=== PATIENT | male | born 1960 | race Caucasian/White ===

== ENCOUNTER 2021-08-24 15:27 | Outpatient (CLI) | payer OTHER, MEDICAID, MEDICARE, SELFPAY ==
--- NOTE | 2021-08-24 15:45 | USCV_ITS ---
Eamon Harvey Age: 61 Gender: M : 1960 Exam Date: 08/24/2021 15:46 Ordering Phys: Lilian Levi MD ([email or web address]) Technologist: CHARLES Exam Location: [facility] [place] Indication: H/O PFO DONE W/BUBBLES BP: / HR: 68 Rhythm: Sinus Technical Quality: Adequate MEASUREMENTS (Male / Female) Normal Values 2D ECHO LV Diastolic Diameter PLAX 4.0 cm 4.2 - 5.9 / 3.9 - 5.3 cm LV Systolic Diameter PLAX 2.5 cm IVS Diastolic Thickness 1.4 cm 0.6 - 1.0 / 0.6 - 0.9 cm IVS Systolic Thickness 1.7 cm LVPW Diastolic Thickness 1.0 cm 0.6 - 1.0 / 0.6 - 0.9 cm LVPW Systolic Thickness 1.3 cm LVOT Diameter 2.2 cm LV Ejection Fraction 2D Teich 68.9 % LV Ejection Fraction MOD 2C 72.7 % LV Ejection Fraction 2C AL 74.0 % LA Diameter 3.8 cm LA Width 3.4 cm LA Height 5.1 cm RA Width 3.1 cm RA Height 4.6 cm Aorta at Sinotubular Diameter 3.5 cm M-MODE Aortic Annulus Diameter 3.7 cm LA Ao Ratio MM 1.0 MV E Point Septal Separation 0.3 cm DOPPLER AV Peak Velocity 139.0 cm/s LVOT Peak Velocity 93.0 cm/s AV Area Cont Eq vti 3.0 cm squared AV Area Cont Eq pk 2.5 cm squared MV Area PHT 3.2 cm squared Mitral E to A Ratio 0.9 MV E' Velocity 43.0 cm/s Mitral E to MV E' Ratio 9.4 Mitral E to LV E' Lateral Ratio 7.3 Mitral E to LV E' Septal Ratio 13.6 TR Peak Velocity 199.0 cm/s TR Peak Gradient 15.8 mmHg TV Peak E Velocity 44.0 cm/s Right Atrial Pressure 5.0 mmHg Pulmonary Artery Systolic Pressu 20.8 mmHg PV Peak Velocity 110.0 cm/s RV Acceleration Time 0.1 s RV Ejection Time 0.4 s RV AcT/ET 0.1 FINDINGS Left Ventricle Normal left ventricular size, systolic function and wall thickness, with no regional wall motion abnormalities. Left ventricular ejection fraction is estimated at 65 %. Normal diastolic function. Right Ventricle Normal right ventricular size and systolic function. Right ventricular systolic pressure 19 mmHg. Right Atrium Normal right atrial size. No evidence of ASD or PFO by color Doppler. There is possible tiny PFO (few bubbles may have crossed over from right to left atrium) by agitated saline study. Left Atrium Normal left atrial size. Mitral Valve Structurally normal mitral valve. No mitral valve stenosis. No mitral valve regurgitation. Aortic Valve Structurally normal trileaflet aortic valve. No aortic valve stenosis. No aortic valve regurgitation. Tricuspid Valve Structurally normal tricuspid valve. No tricuspid valve stenosis. Trace to mild tricuspid valve regurgitation. Pulmonic Valve Pulmonic valve not well visualized. Trace pulmonary valve regurgitation. Pericardium No pericardial effusion. Aorta Normal size aortic root and proximal ascending aorta. CONCLUSIONS 1. Normal left ventricular size, systolic function and wall thickness, with no regional wall motion abnormalities. Left ventricular ejection fraction is estimated at 65 %. Normal diastolic function. 2. Normal right ventricular size and systolic function. 3. Normal pulmonary artery pressure. 4. There is possible tiny PFO (few bubbles may have crossed over from right to left atrium) by agitated saline study. 5. No prior similar studies to compare. Lilian Levi MD (Electronically Signed) Final Date: 28 August 2021 13:08 S
== END 2021-08-24 15:28 | disposition home or self-care (01) ==
LOC: RAD 15:34
PROVIDERS: PCP Physician Assistant; Visit Provider Internal Medicine Cardiovascular Disease
DX: Q21.1 Atrial septal defect (principal)
CPT/HCPCS: C8929

== ENCOUNTER 2021-09-04 12:48 | Outpatient (CLI) | payer MEDICARE, MEDICAID, SELFPAY ==
--- NOTE | 2021-09-04 | CT_ITS ---
WS: [email or web address] LDCT LUNG CANCER SCREENING TECHNIQUE: Noncontrast CT of the chest with coronal and sagittal reformatted images. CLINICAL INFORMATION: LUNG SCREEN COMPARISON: None. DLP: 53.4 mGy.cm DIvol: Mean CTDIvol: 1.58 (mGy) All CT scans at [facility] use at least one of these dose optimization techniques: automat ed exposure control; mA and/or kV adjustment per patient size (includes targeted exams where dose is matched to clinical indication); or iterative reconstruction. FINDINGS: Normal caliber thoracic aorta. Aortic calcification. Coronary calcification. No mediastinal or hilar lymphadenopathy. No axillary lymphadenopathy. Hepatomegaly with Enlargement of the LEFT hepatic lobe extending into the LEFT upper abdomen. Normal GE junction. Lungs are well aerated. No suspicious pulmonary parenchymal abnormalities. Slight bibasilar atelectas is. CT/CT lung screening [id number] IMPRESSION: Hepatomegaly with enlargement of the LEFT hepatic lobe extending in to the LEFT upper abdomen. Correlation with liver function tests. This can be further evaluated with contr ast-enhanced CT abdomen pelvis or ultrasound. LUNG-RADS: 1S-Negative with Significant Findings FOLLOW UP: 12 Month: Continue annual screening with LDCT
== END 2021-09-04 12:49 | disposition home or self-care (01) ==
PROVIDERS: PCP Physician Assistant; Visit Provider Physician Assistant
DX: Z12.2 Encounter for screening for malignant neoplasm of respiratory organs (principal); F17.210 Nicotine dependence, cigarettes, uncomplicated
CPT/HCPCS: 71271

== ENCOUNTER → 2022-05-06 11:02 | Outpatient (BNVA) | payer MEDICARE, SELFPAY | PROVIDERS: PCP Physician Assistant; Visit Provider Internal Medicine Cardiovascular Disease | DX: I25.10 Atherosclerotic heart disease of native coronary artery without angina pectoris (principal); Q21.12 Patent foramen ovale; Z86.73 Personal history of transient ischemic attack (TIA), and cerebral infarction without residual deficits; I25.2 Old myocardial infarction | CPT/HCPCS: 99214 ==

== ENCOUNTER → 2022-06-24 10:47 | Outpatient (BNVA) | payer MEDICARE, SELFPAY | PROVIDERS: PCP Physician Assistant; Visit Provider Podiatrist Foot & Ankle Surgery | DX: E11.8 Type 2 diabetes mellitus with unspecified complications (principal); I73.9 Peripheral vascular disease, unspecified; B35.1 Tinea unguium; Z79.84 Long term (current) use of oral hypoglycemic drugs | CPT/HCPCS: 11721; 99204 ==

== ENCOUNTER → 2022-09-09 11:11 | Outpatient (BNVA) | payer MEDICARE, SELFPAY | PROVIDERS: PCP Physician Assistant; Visit Provider Podiatrist Foot & Ankle Surgery | DX: E11.8 Type 2 diabetes mellitus with unspecified complications (principal); B35.1 Tinea unguium; I73.9 Peripheral vascular disease, unspecified; Z79.84 Long term (current) use of oral hypoglycemic drugs | CPT/HCPCS: 11721 ==

== ENCOUNTER → 2022-10-09 13:47 | Outpatient (BNVA) | payer MEDICARE, SELFPAY | PROVIDERS: PCP Physician Assistant; Visit Provider Specialist | DX: G40.909 Epilepsy, unspecified, not intractable, without status epilepticus (principal); F17.210 Nicotine dependence, cigarettes, uncomplicated | CPT/HCPCS: 99213 ==

== ENCOUNTER → 2022-11-18 11:08 | Outpatient (BNVA) | payer MEDICARE, SELFPAY | PROVIDERS: PCP Physician Assistant; Visit Provider Podiatrist Foot & Ankle Surgery | DX: I73.9 Peripheral vascular disease, unspecified (principal); B35.1 Tinea unguium; E11.9 Type 2 diabetes mellitus without complications; Z79.84 Long term (current) use of oral hypoglycemic drugs | CPT/HCPCS: 11721 ==

== ENCOUNTER 2022-12-09 11:58 | Outpatient (CLI) | payer MEDICARE, SELFPAY ==
--- NOTE | 2022-12-09 12:12 | CT_ITS ---
WS: [email or web address] LDCT LUNG CANCER SCREENING TECHNIQUE: Noncontrast CT of the chest with coronal and sagittal reformatted images. CLINICAL INFORMATION: NICOTINE DEPENDENCE,CIGARETTES COMPARISON: September 04, 2021 DLP: 79.31 mGy.cm DIvol: Mean CTDIvol: 1.80 (mGy) All CT scans at [facility] use at least one of these dose optimization techniques: automat ed exposure control; mA and/or kV adjustment per patient size (includes targeted exams where dose is matched to clinical indication); or iterative reconstruction. FINDINGS:Slight bibasilar atelectasis. Small fibrotic opacity in the lingula measuring 9 mm most like ly inflammatory. Normal caliber thoracic aorta. Aortic calcification. Coronary calcification. No mediastinal or hilar lymphadenopathy. Tiny calcified RIGHT thyroid nodule. Hepatomegaly partially visualized. Small esopha geal hiatal hernia. Mild thoracic kyphosis. CT/CT lung screening [id number] IMPRESSION: LUNG-RADS: 2-Benign Appearance or Behavior FOLLOW UP: 12 Month: Continue annual screening with LDCT
== END 2022-12-09 11:59 | disposition home or self-care (01) ==
LOC: RAD 12:03
PROVIDERS: PCP Physician Assistant; Visit Provider Family Medicine
DX: Z12.2 Encounter for screening for malignant neoplasm of respiratory organs (principal); F17.210 Nicotine dependence, cigarettes, uncomplicated
CPT/HCPCS: 71271

== ENCOUNTER → 2023-01-21 09:25 | Outpatient (BNVA) | payer MEDICARE, SELFPAY | PROVIDERS: PCP Physician Assistant; Referring Provider Physician Assistant; Visit Provider Anesthesiology Pain Medicine | DX: M16.0 Bilateral primary osteoarthritis of hip (principal); M54.6 Pain in thoracic spine; M47.816 Spondylosis without myelopathy or radiculopathy, lumbar region | CPT/HCPCS: 99204 ==

== ENCOUNTER 2023-01-27 11:51 | Outpatient (CLI) | payer MEDICARE, SELFPAY ==
--- NOTE | 2023-01-27 12:02 | XR_ITS ---
WS: [email or web address] EXAMINATION: XR thoracic spine 3V* [id number] REASON FOR EXAM: M54.6 - Pain in thoracic spine COMPARISON: None available. ORDER DATE: 01/27/2023 12:06 PM FINDINGS: There is mild kyphosis and probable osteopenia with minor endplate degenerative changes. No sign of a cute or chronic compression deformities. XR/XR thoracic spine 3V* [id number] IMPRESSION: Mild degenerative spine changes.
--- NOTE | 2023-01-27 12:02 | XR_ITS ---
WS: [email or web address] EXAMINATION: XR lumbar spine min 4V [id number] L-SPINE : 5 views REASON FOR EXAM: M54.50 - Low back pain, unspecified COMPARISON: None available. ORDER DATE: 01/27/2023 12:06 PM FINDINGS: The lumbar vertebral bodies and the disc spaces are normal in width. In the lumbar vertebra, there i s no evidence of compression deformities or spondylolisthesis. There is prominent intervertebral disc narrowing at L5-S1 with marginal osteophytes. Minor atherosclerotic aortoiliac calcification noted. XR/XR lumbar spine min 4V [id number] IMPRESSION: Degenerative disc changes and narrowing at L5-S1.
--- NOTE | 2023-01-27 12:02 | XR_ITS ---
WS: [email or web address] EXAMINATION: XR hip BI 2V wo/w pel [id number] REASON FOR EXAM: M16.9 - Osteoarthritis of hip, unspecified COMPARISON: None available. ORDER DATE: 01/27/2023 12:06 PM TECHNIQUE: Frontal internal/external rotation views of each hip were obtained. X-RAY FINDINGS: There are no fractures or dislocations. Normal motion with internal/external rotation is present. No degenerative changes. XR/XR hip BI 2V wo/w pel [id number] IMPRESSION: 1. No fractures or dislocations.. 2. Normal motion with internal/external rotation.
== END 2023-01-27 11:52 | disposition home or self-care (01) ==
PROVIDERS: PCP Physician Assistant; Visit Provider Anesthesiology Pain Medicine
DX: M16.9 Osteoarthritis of hip, unspecified (principal); M54.50 Low back pain, unspecified; M51.37 Other intervertebral disc degeneration, lumbosacral region; M47.814 Spondylosis without myelopathy or radiculopathy, thoracic region
CPT/HCPCS: 72072; 72110; 73521

== ENCOUNTER → 2023-02-10 12:47 | Outpatient (BNVA) | payer MEDICARE, SELFPAY | PROVIDERS: PCP Physician Assistant; Visit Provider Podiatrist Foot & Ankle Surgery | DX: B35.1 Tinea unguium (principal); I73.9 Peripheral vascular disease, unspecified; E11.9 Type 2 diabetes mellitus without complications; Z79.84 Long term (current) use of oral hypoglycemic drugs | CPT/HCPCS: 11721 ==

== ENCOUNTER → 2023-02-20 09:23 | Outpatient (BNVA) | payer MEDICARE, SELFPAY | PROVIDERS: PCP Physician Assistant; Visit Provider Anesthesiology Pain Medicine | DX: M47.816 Spondylosis without myelopathy or radiculopathy, lumbar region (principal) | CPT/HCPCS: 99215 ==

== ENCOUNTER 2023-03-20 08:11 | Outpatient (CLI) | payer MEDICARE, MEDICAID, SELFPAY ==
--- NOTE | 2023-03-20 08:45 | MR_ITS ---
WS: [email or web address] MRI LUMBAR SPINE NONCONTRAST TECHNIQUE: Sagittal T1, T2 and STIR imaging. Axial T1. Axial T2 imaging not obtained due to patient's inability to tolerate further imaging due to pain. CLINICAL INFORMATION: M47.816 - Spondylosis without myelopathy or radiculopathy... COMPARISON: None. FINDINGS: Axial T2 imaging not obtained due to patient's inability to tolerate further imaging due to pain Mild lumbar curve. Disc space narrowing worse at L5-S1 with endplate degenerative changes. L1-L2: Normal. L2-L3: Spinal canal and foramen are patent. Mild facet arthropathy. L3-L4: No significant disc bulging. Mild arthropathy. Spinal canal and foramen are patent. L4-L5: Minimal annular bulging. Moderate facet arthropathy. Mild RIGHT and no significant LEFT forami nal narrowing. Spinal canal is patent. L5-S1: Disc space narrowing with endplate degenerative changes. Disc osteophyte complex with endplate ridging. Mild LEFT greater than RIGHT foraminal narrowing. Mild facet arthropathy. Partially visualized indeterminate LEFT renal lesion only seen on the axial T1 imaging. This measures approximately 12 mm and can be further evaluated with ultrasound or contrast-enhanced CT abdomen pel vis. Tiny partially visualized RIGHT renal lesion. Visualized pelvic bony structures: Normal. Paravertebral soft tissues: Normal. IMPRESSION: 1. Mild lumbar curve. No acute compression. Disc space narrowing worse at L5-S1 with endplate degene rative changes. 2. Disc space narrowing worse at L5-S1 with endplate degenerative changes. Mild disc osteophytic rid ging with mild bilateral foraminal narrowing encroaches on the exiting L5 nerve roots bilaterally. Sp inal canal is patent. 3. Mild facet arthropathy L3-L4 L4-L5. 4. Partially visualized indeterminate LEFT renal lesion measuring 12 mm. Recommend further evaluatio n with ultrasound or contrast-enhanced CT abdomen pelvis. No prior abdominal imaging for comparison.
== END 2023-03-20 08:12 | disposition home or self-care (01) ==
PROVIDERS: PCP Physician Assistant; Visit Provider Anesthesiology Pain Medicine
DX: M47.816 Spondylosis without myelopathy or radiculopathy, lumbar region (principal); M25.78 Osteophyte, vertebrae; N28.9 Disorder of kidney and ureter, unspecified
CPT/HCPCS: 72148

== ENCOUNTER → 2023-04-07 10:11 | Outpatient (BNVA) | payer MEDICARE, MEDICAID, SELFPAY | PROVIDERS: PCP Physician Assistant; Visit Provider Anesthesiology Pain Medicine | DX: N28.89 Other specified disorders of kidney and ureter (principal); M47.816 Spondylosis without myelopathy or radiculopathy, lumbar region; M51.36 Other intervertebral disc degeneration, lumbar region | CPT/HCPCS: 99214 ==

== ENCOUNTER → 2023-05-02 09:23 | Outpatient (BNVA) | payer MEDICARE, SELFPAY | PROVIDERS: PCP Physician Assistant; Visit Provider Podiatrist Foot & Ankle Surgery | DX: B35.1 Tinea unguium (principal); I73.9 Peripheral vascular disease, unspecified; E11.9 Type 2 diabetes mellitus without complications; Z79.84 Long term (current) use of oral hypoglycemic drugs | CPT/HCPCS: 11721 ==

== ENCOUNTER 2023-05-05 08:32 | Outpatient (CLI) | payer MEDICARE, SELFPAY ==
--- NOTE | 2023-05-05 09:00 | CT_ITS ---
WS: [email or web address] CT ABDOMEN PELVIS TECHNIQUE: Noncontrast CT of the abdomen and contrast-enhanced CT of the abdomen and pelvis with azra nal and sagittal reformatted images. CLINICAL INFORMATION: N28.89 - Other specified disorders of kidney and ureter COMPARISON: MRI 03/20/2023 DLP: 2521.[address] scans at [facility] use at least one of these dose optimization techniques: automated e xposure control; mA and/or kV adjustment per patient size (includes targeted exams where dose is matc hed to clinical indication); or iterative reconstruction. FINDINGS: Previously described indeterminate LEFT renal lesion imaging characteristics most compatible with sli ghtly complex renal cyst today. Mild contrast enhancement less than 10 Hounsfield units. Recommend co ntinued surveillance. Additional incidental simple LEFT renal cysts. Incidental RIGHT renal cysts. No hydronephrosis in eit her kidney. Adrenal glands are normal. Normal excretion on the delayed images. Hepatomegaly diffuse fatty filtration of the liver. Normal portal vein and splenic vein. Normal splee n. Normal GE junction. Normal gallbladder. Slight bibasilar atelectasis. Normal pancreatic parenchymal enhancement. Normal caliber abdominal aorta. Mild aortic calcification. Small bladder cystocele. Prostate measures 4.5 cm. No abdominal or pelvic lymphadenopathy. Disc desiccation worse at L4-L5 and L5-S1. IMPRESSION: 1. Previously described LEFT renal lesion posteriorly measuring 1.6 x 1.7 cm. Imaging characteristic s most compatible with slightly complex cyst with a small amount of enhancement. Recommend continued annual surveillance with CT or ultrasound. 2. Otherwise incidental bilateral renal cysts. 3. No hydronephrosis in either kidney. 4. Diffuse fatty infiltration liver. 5. No other suspicious findings.
[2023-05-05 09:10] LABS: Blood Urea Nitrogen 7 mg/dL (8-23); Glomerular Filtration Rate 113.5 mL/min (90-130)
[2023-05-05] MEDS: iohexol 350 mg/mL 500 mL Btl (per mL) IV (09:19)
== END 2023-05-05 08:33 | disposition home or self-care (01) ==
LOC: RAD 08:32
PROVIDERS: Radiology Diagnostic Radiology; PCP Physician Assistant; Visit Provider Anesthesiology Pain Medicine
DX: N28.89 Other specified disorders of kidney and ureter (principal); I25.10 Atherosclerotic heart disease of native coronary artery without angina pectoris; E78.5 Hyperlipidemia, unspecified; Q21.12 Patent foramen ovale; Z86.73 Personal history of transient ischemic attack (TIA), and cerebral infarction without residual deficits; E11.9 Type 2 diabetes mellitus without complications; J44.9 Chronic obstructive pulmonary disease, unspecified; F17.200 Nicotine dependence, unspecified, uncomplicated; Z79.02 Long term (current) use of antithrombotics/antiplatelets; Z79.84 Long term (current) use of oral hypoglycemic drugs; Z79.899 Other long term (current) drug therapy
CPT/HCPCS: 74178; 82565; 84520; 99214; Q9967

== ENCOUNTER → 2023-05-13 14:23 | Outpatient (BNVA) | payer MEDICARE, SELFPAY | PROVIDERS: PCP Physician Assistant; Visit Provider Anesthesiology Pain Medicine | DX: M47.816 Spondylosis without myelopathy or radiculopathy, lumbar region (principal); M54.9 Dorsalgia, unspecified | CPT/HCPCS: 64493; 64494; 64495; J3490 ==

== ENCOUNTER → 2023-06-04 08:46 | Outpatient (BNVA) | payer MEDICARE, SELFPAY | PROVIDERS: PCP Physician Assistant; Visit Provider Anesthesiology Pain Medicine | DX: M47.816 Spondylosis without myelopathy or radiculopathy, lumbar region | CPT/HCPCS: 99214 ==

== ENCOUNTER → 2023-07-14 09:10 | Outpatient (BNVA) | payer MEDICARE, SELFPAY | PROVIDERS: PCP Physician Assistant; Visit Provider Podiatrist Foot & Ankle Surgery | DX: B35.1 Tinea unguium (principal); I73.9 Peripheral vascular disease, unspecified; E11.42 Type 2 diabetes mellitus with diabetic polyneuropathy; Z79.84 Long term (current) use of oral hypoglycemic drugs | CPT/HCPCS: 11721 ==

== ENCOUNTER 2024-01-22 08:23 | Outpatient (CLI) | payer MEDICARE, MEDICAID, SELFPAY ==
--- NOTE | 2024-01-22 08:35 | CT_ITS ---
WS: [email or web address] LDCT LUNG CANCER SCREENING TECHNIQUE: Noncontrast CT of the chest with coronal and sagittal reformatted images. CLINICAL INFORMATION: NICOTINE DEPENDENCE, CIGARETTES COMPARISON: CT 12/09/2022 DLP: 64.32 mGy.cm DIvol: Mean CTDIvol: 1.50 (mGy) All CT scans at [facility] use at least one of these dose optimization techniques: automat ed exposure control; mA and/or kV adjustment per patient size (includes targeted exams where dose is matched to clinical indication); or iterative reconstruction. FINDINGS: Small fibrotic opacity previously described in the lingula appears resolved. Small amount o f pleural thickening anterior inferior lingula. No other suspicious pulmonary parenchymal abnormaliti es. Aortic calcification. Normal caliber thoracic aorta. Coronary calcification. No mediastinal or hilar lymphadenopathy. No axillary lymphadenopathy. Adrenal glands are normal. Tiny esophageal hiatal hernia. Mild thoracic curve. Mild thoracic kyphosis . CT/CT lung screening [id number] IMPRESSION: LUNG-RADS: 2-Benign Appearance or Behavior FOLLOW UP: 12 Month: Continue annual screening with LDCT
== END 2024-01-22 08:24 | disposition home or self-care (01) ==
LOC: RAD 08:24
PROVIDERS: PCP Physician Assistant; Visit Provider Physician Assistant
DX: Z12.2 Encounter for screening for malignant neoplasm of respiratory organs (principal); F17.210 Nicotine dependence, cigarettes, uncomplicated; J92.9 Pleural plaque without asbestos; I70.0 Atherosclerosis of aorta; I25.84 Coronary atherosclerosis due to calcified coronary lesion
CPT/HCPCS: 71271

== ENCOUNTER → 2024-03-25 10:33 | Outpatient (BNVA) | payer MEDICARE, MEDICAID, SELFPAY | PROVIDERS: PCP Physician Assistant; Visit Provider Internal Medicine | DX: I25.10 Atherosclerotic heart disease of native coronary artery without angina pectoris (principal); E78.5 Hyperlipidemia, unspecified; Z86.39 Personal history of other endocrine, nutritional and metabolic disease; J44.9 Chronic obstructive pulmonary disease, unspecified; Z86.73 Personal history of transient ischemic attack (TIA), and cerebral infarction without residual deficits; Q21.12 Patent foramen ovale | CPT/HCPCS: 99214 ==

== ENCOUNTER → 2025-03-24 13:58 | Outpatient (BNVA) | payer OTHER, MEDICAID, SELFPAY | PROVIDERS: PCP Physician Assistant; Visit Provider Internal Medicine | DX: I25.10 Atherosclerotic heart disease of native coronary artery without angina pectoris (principal); R07.9 Chest pain, unspecified; R06.02 Shortness of breath; E78.5 Hyperlipidemia, unspecified; F17.200 Nicotine dependence, unspecified, uncomplicated | CPT/HCPCS: 99214 ==

== ENCOUNTER 2025-03-30 09:24 | Outpatient (CLI) | payer OTHER, MEDICAID, SELFPAY ==
--- NOTE | 2025-03-30 08:43 | ECG_ITS ---
Kadient Test Date: 2025-03-30 Pat Name: Eamon Harvey Department: Room: Gender: Male Client Experience Manager: : 1960 Requested By: Abdoul Salmon Order Number: [id number] Raza MD: Hansel Gaming M.D. Interpretive Statements Procedure: A total of 0.4 mg of Lexiscan was infused over 20 seconds. The stress phase was continued for a total of 5 minutes. Sestamibi was injected 20 seconds after the Lexiscan infusion. Data: Baseline blood pressure was 115/69 with a heart rate of 72. After Lexiscan injection the heart rate increased to a maximum of 97 bpm and then the blood pressure dropped to a minimum of 113/62. Blood pressure during recovery was 122/61 with a heart rate of 92 bpm. Resting EKG prior to stress test showed normal sinus rhythm with no ST-T wave abnormality. Stress EKG showed no new ST-T wave abnormality. Conclusion: 1. Normal EKG response to Lexiscan infusion 2. No Lexiscan induced chest pain or cardiac arrhythmia. 3. Normal blood pressure and heart rate response. 4. Nuclear myocardial perfusion scan pending; see separate report. Electronically Signed On 03-30-2025 18:12:20 CDT by Hansel Gaming M.D. [email or web address]
--- NOTE | 2025-03-30 08:43 | NMCV_ITS ---
NM radha perf SPECT r/s* [id number] Eamon Harvey Age: 64 Gender: M : 1960 Exam Date: 03/30/2025 10:11 Ordering Phys: Abdoul Salmon M.D ([email or web address]) Technologist: LISA Li Exam Location: [facility] Indications: cp STRESS TEST Please see separate stress test report in [facility] for full findings IMAGE PROTOCOL Rest/Stress 1 Lexiscan Day Radiopharmaceutical Dose (mCi) Administration Site Administered by Rest: Tc-99m 11 IV LISA Li Sestamibi Stress:Tc-99m 33 IV LISA Jimenez Sestamibi Rest: 30-Mar-2025 60 Discovery 630 Stress: 30-Mar-2025 30 Discovery 630 0.4mg Lexiscan. Supine position only as patient was unable to lay prone. SPECT RESULTS Technical Quality: Good Raw Data Analysis: Normal Image Corrections: No attenuation or motion correction applied Summed Stress Score: 2 Summed Rest Score: 4 Summed Difference Score: 0 PERFUSION FINDINGS SPECT images demonstrate homogeneous tracer distribution throughout the myocardium. FUNCTIONAL RESULTS (calculated via Gated SPECT) Stress Image LV EF (%): 84 Stress EDV (mL):70 TID: 0.94 Stress ESV (mL):11 FUNCTIONAL FINDINGS: There is normal left ventricular systolic function. IMPRESSIONS Myocardial perfusion imaging is normal. Normal left ventricular systolic function, EF >75%.. Hansel Gaming MD, FACC (Electronically Signed) Final Date: 30 March 2025 17:41 S
[2025-03-30 09:27] VITALS: BMI 27.9
[2025-03-30 10:54] VITALS: BP 115/63; PULSE 92
== END 2025-03-30 09:25 | disposition home or self-care (01) ==
LOC: CDL 09:26
PROVIDERS: PCP Physician Assistant; Visit Provider Internal Medicine
DX: R07.9 Chest pain, unspecified (principal); R06.02 Shortness of breath
CPT/HCPCS: 36415; 78452; 93017; 96374; A9500; J2785

== ENCOUNTER 2025-04-20 14:21 | Outpatient (CLI) | payer OTHER, MEDICAID, SELFPAY ==
--- NOTE | 2025-04-20 14:29 | CT_ITS ---
WS: [email or web address] LDCT LUNG CANCER SCREENING HISTORY: NICOTINE DEPENDENCE, CIGARETTES TECHNIQUE: Axial imaging performed from the apices to 1 cm below the costophrenic angles. Coronal and sagittal reformats are submitted with axial MIP series. All CT scans at [facility] use at least one of these dose optimization techniques: automated exposure control; mA and/or kV adjustment per patient size (includes targeted exams where dose is matched to clinical indication); or iterative reconstruction. DLP: 86.81 mGy.cm DIvol: Mean CTDIvol: 1.90 (mGy) COMPARISON: 01/22/2024, 12/09/2022 Diagnostic quality: Poor inspiration. Lungs: Poor inspiratory effort. Lung volumes are decreased. Mild motion artifact from breathing. No pulmonary mass or nodule. No endobronchial lesions. Heart: Normal size heart with no pericardial effusion.. Other findings: Mild atherosclerosis aorta. Normal size aorta and pulmonary artery. No mediastinal or hilar adenopathy. Moderate coronary artery calcification. No adrenal mass. Reidentified is the previously described mass in the posterior LEFT kidney which is unchanged in size measuring 1.8 cm. Incomp letely included on this examination of the thorax. CT/CT lung screening [id number] IMPRESSION: LUNG-RADS: 1-Negative FOLLOW UP: 12 Month: Continue annual screening with LDCT OTHER FINDINGS (S MODIFIER): None.
== END 2025-04-20 14:22 | disposition home or self-care (01) ==
LOC: RAD 14:23
PROVIDERS: PCP Physician Assistant; Visit Provider Physician Assistant
DX: Z12.2 Encounter for screening for malignant neoplasm of respiratory organs (principal); F17.210 Nicotine dependence, cigarettes, uncomplicated; I70.0 Atherosclerosis of aorta; I25.84 Coronary atherosclerosis due to calcified coronary lesion; N28.89 Other specified disorders of kidney and ureter
CPT/HCPCS: 71271